=== PATIENT | female | born 1980 | race Caucasian/White ===

== ENCOUNTER 2016-08-17 16:42 | Emergency (ER) | payer MEDICAID ==
[2016-08-17] MEDS ORDERED: NORMAL SALINE 1000 ML 1,000 ML IV PRN (16:54)
--- NOTE | 2016-08-17 16:54 | ER Document Report ---
ED Medical Screen (RME) - General Stated Complaint: JAW PAIN, BACK PAIN,HEAD PAIN Notes: This 36-year-old female who has had some CSF issues has been put on Topamax for approximately a month has been having a lot of adverse side effects including spasming generally not feeling well. I greeted and performed a rapid initial assessment of this patient. Comprehensive ED assessment and evaluation of the patient, analysis of test results and completion of the medical decision making process will be conducted by additional ED providers. TRAVEL OUTSIDE OF THE [place] IN LAST 30 DAYS: No - Related Data Allergies/Adverse Reactions: azithromycin [Azithromycin] Allergy (Verified 07/17/16 17:30) anticonvulsants Allergy (Uncoded 07/17/16 17:30) Past Medical History - Past Medical History Cardiac Medical History: Reports: Hx Hypertension Denies: Hx Coronary Artery Disease, Hx Heart Attack Pulmonary Medical History: Reports: Hx Asthma Denies: Hx Bronchitis, Hx COPD, Hx Pneumonia Neurological Medical History: Reports: Hx Seizures - A CHILD (15 YEARS SINCE LAST ATTACK). Denies: Hx Cerebrovascular Accident Musculoskeltal Medical History: Reports Hx Arthritis - OA THROUGHOUT Psychiatric Medical History: Reports: Hx Bipolar Disorder, Hx Depression, Hx Schizophrenia Past Surgical History: Reports: Hx Cholecystectomy, Hx Tubal Ligation - Immunizations Hx Diphtheria, Pertussis, Tetanus Vaccination: Yes Physical Exam - Vital signs Vitals: Temp Pulse Resp BP Pulse Ox 97.9 F 88 20 142/82 H 100 08/17/16 16:49 08/17/16 16:49 08/17/16 16:49 08/17/16 16:49 08/17/16 16:49 Course - Vital Signs Vital signs: Temp Pulse Resp BP Pulse Ox 97.9 F 88 20 142/82 H 100 08/17/16 16:49 08/17/16 16:49 08/17/16 16:49 08/17/16 16:49 08/17/16 16:49
[2016-08-17 17:22] LABS: ABSOLUTE BASOPHILS # (AUTO) 0.1 10^3/uL (0.0-0.2); ABSOLUTE EOSINOPHILS # (AUTO) 0.1 10^3/uL (0.0-0.6); ABSOLUTE LYMPHOCYTES (AUTO) 2.4 10^3/uL (0.5-4.7); ABSOLUTE MONOCYTES (AUTO) 0.6 10^3/uL (0.1-1.4); ABSOLUTE NEUT (AUTO) 7.4 10^3/uL (1.7-8.2); BASOPHILS % (AUTO) 0.6 % (0-2); EOSINOPHILS % (AUTO) 0.8 % (0-6); HEMATOCRIT 45.2 % (36.0-47.0); HEMOGLOBIN 14.8 g/dL (12.0-15.5); HGB HCT DIFFERENCE -0.8; MEAN CORPUSCULAR HEMOGLOBIN 29.1 pg (27.0-33.4); MEAN CORPUSCULAR HGB CONC 32.8 g/dL (32.0-36.0); MEAN CORPUSCULAR VOLUME 89 fl (80-97); MONOCYTES % (AUTO) 5.2 % (3-13); RED BLOOD COUNT 5.08 10^6/uL (3.72-5.28); RED CELL DISTRIBUTION WIDTH 12.5 % (11.5-14.0); SEGMENTED NEUTROPHILS % (AUTO) 70.4 % (42-78); WHITE BLOOD COUNT 10.6 10^3/uL (4.0-10.5)
[2016-08-17 17:37] LABS: ALANINE AMINOTRANSFERASE 21 U/L (9-52); ALBUMIN 4.2 g/dL (3.5-5.0); ALKALINE PHOSPHATASE 60 U/L (38-126); ANION GAP 14 (5-19); ASPARTATE AMINO TRANSFERASE 11 U/L (14-36); BILIRUBIN,TOTAL 0.4 mg/dL (0.2-1.3); BLOOD UREA NITROGEN 8 mg/dL (7-20); CALCIUM 9.8 mg/dL (8.4-10.2); CARBON DIOXIDE 22 mmol/L (22-30); CHLORIDE 108 mmol/L (98-107); CREATININE RESULT 0.89 mg/dL (0.52-1.25); GLUCOSE 92 mg/dL (75-110); POTASSIUM 3.2 mmol/L (3.6-5.0); SODIUM 144.1 mmol/L (137-145); TOTAL PROTEIN 6.9 g/dL (6.3-8.2)
[2016-08-17] MEDS ORDERED: POTASSIUM CHLORIDE 20 MEQ/15 ML UDCUP PO ONE (18:31)
--- NOTE | 2016-08-17 19:24 | ER Document Report ---
HPI - HPI Patient complains to provider of: muscle aches Pain Level: 3 Context: Patient is a 36-year-old female who presents emergency Department complaining of muscle aches in her neck and back. Patient has a very complicated history for pseudotumor cerebri he with multiple visits to emergency department for headaches. Most was recently she was treated on July [address] Jaramillo with a lumbar puncture for elevated CSF for headache. Her symptoms are resolved after that procedure. Patient was discharged home and instructed to follow-up with her neurologist. She returned on July 17 with headache and orders for admission to receive a blood patch for post-lumbar tap headache. At this time with her stay in the emergency department she had declined admission because she said she felt better and wanted to go home. She presents emergency department today stating that her Topamax is making her feel goofy. She says that she has been on it for about 6 weeks and is having these symptoms the entire time but that it become more severe over this past week. She states that she has pain in her neck and lower back. She states that her prescriptions for baclofen and naproxen and OxyContin helping improve it. She is coming here today because she thinks she is leaking cerebrospinal fluid. Otherwise she denies any headache/pressure. Altered mental status, seizures, vision changes, light sensitivity. Past medical history significant for pseudotumor cerebri, hypertension, asthma, osteoarthritis, bipolar, depression, schizophrenia Past surgical history significant for cholecystectomy, tubal ligation Home medications are Topamax 200 mg, baclofen 20 mg 3 times a day, OxyContin 5 mg when necessary, Toprol 25 mg daily, naproxen to 20 twice a day when necessary PCP is Dr. Murguia, neurologist is Dr. Friedman - REPRODUCTIVE Reproductive: DENIES: : - DERM Skin Color: Normal Past Medical History - General Information source: Patient - Social History Smoking Status: Unknown if Ever Smoked Family History: Reviewed & Not Pertinent Patient has suicidal ideation: No Patient has homicidal ideation: No - Past Medical History Cardiac Medical History: Reports: Hx Hypertension Denies: Hx Coronary Artery Disease, Hx Heart Attack Pulmonary Medical History: Reports: Hx Asthma Denies: Hx Bronchitis, Hx COPD, Hx Pneumonia Neurological Medical History: Reports: Hx Seizures - A CHILD (15 YEARS SINCE LAST ATTACK). Denies: Hx Cerebrovascular Accident Renal/ Medical History: Denies: Hx Peritoneal Dialysis Musculoskeltal Medical History: Reports Hx Arthritis - OA THROUGHOUT Psychiatric Medical History: Reports: Hx Bipolar Disorder, Hx Depression, Hx Schizophrenia Past Surgical History: Reports: Hx Cholecystectomy, Hx Tubal Ligation - Immunizations Hx Diphtheria, Pertussis, Tetanus Vaccination: Yes Vertical Provider Document - CONSTITUTIONAL Agree With Documented VS: Yes Exam Limitations: Other - Patient is resistant to cooperate with physical exam General Appearance: WD/WN, No Apparent Distress - INFECTION CONTROL TRAVEL OUTSIDE OF THE [place] IN LAST 30 DAYS: No - HEENT HEENT: Atraumatic, Normal ENT Exam, Normocephalic, PERRLA - NECK Neck: Normal Inspection, Other - Paraspinous muscle tenderness - RESPIRATORY Respiratory: Breath Sounds Normal, No Respiratory Distress, Chest Non-Tender O2 Sat by Pulse Oximetry: 100 - CARDIOVASCULAR Cardiovascular: Regular Rate, Regular Rhythm, No Murmur - GI/ABDOMEN Gastrointestinal: Abdomen Soft, Abdomen Non-Tender, No Organomegaly, Normal Bowel Sounds - BACK Back: Normal Inspection Notes: Paraspinal muscle tenderness along the lumbar spine. Full range of motion with guarding. Able to ambulate without any difficulty, able to bear weight. No gait abnormalities SLR negative no headache going from supine to sitting , sitting to supine. able to move around without any limitations - MUSCULOSKELETAL/EXTREMETIES Musculoskeletal/Extremeties: MAEW, FROM, Non-Tender, No Edema. negative: Eccymosis - NEURO Level of Consciousness: Awake, Alert, Appropriate Motor/Sensory: No Motor Deficit, No Sensory Deficit, No Pronator Drift Course - Re-evaluation Re-evalutation: 08/17/16 19:38 Since a 36 female who is hemodynamically stable in no acute distress. Labs came back with concern for infectious illness. Physical exam does not support any spinous or neurological process requiring lumbar tap or additional imaging. Upon further discussion patient states that she has been sleeping upright the past 2 weeks because she feels so goofy Topamax. Stat she is likely having back pain from sleeping upright for prolonged hours. Discussed with patient that there is no indication to admit her this evening and that she can follow- up with Dr. Friedman this week. - Vital Signs Vital signs: Temp Pulse Resp BP Pulse Ox 97.9 F 88 20 142/82 H 100 08/17/16 16:49 08/17/16 16:49 08/17/16 16:49 08/17/16 16:49 08/17/16 16:49 - Laboratory Result Diagrams: 08/17/16 17:08 08/17/16 17:08 Laboratory results interpreted by me: 08/17/16 08/17/16 17:08 17:08 WBC 10.6 H Potassium 3.2 L Chloride 108 H AST 11 L Discharge - Discharge Clinical Impression: Muscle ache Condition: Good Disposition: HOME, SELF-CARE Instructions: Warm Packs ([facility]) Additional Instructions: - There is no emergent concern. Presenting symptoms today. His indicated. A follow-up care neurologist Dr. Friedman this week to discuss your concerns about your medication. Please return to emergency department if you have any worsening headache or other concerning symptoms. -Today, you did have a lower than normal potassium. Please see attached list of foods that are high in the rectal potassium. 1) Avocado. 1 whole: 1068 mg (30% DV) 2) Spinach. 1 cup: 839mg (24% DV) 3) Sweet potato. 1 medium: 952 mg (27% DV) 4) Coconut Water. 1 cup 600 mg (17% DV) 5) Kefir or Yogurt. 1 cup: 579 mg (15% DV) 6) White Beans. cup: 502 mg (15% DV) 7) Banana. 1 large: 422 mg (12% DV) 8) [place] squash. Referrals: ALLEN BAEZA MD [Primary Care Provider] - Follow up as needed QUOC FRIEDMAN MD [EMERITUS] - Follow up in 1 week
[2016-08-17] MEDS ORDERED: POTASSIUM CHLORIDE 10 MEQ TABLET.SA PO ONE (19:27)
[2016-08-17 19:59] VITALS: BP 138/90
== END 2016-08-17 19:59 | disposition home or self-care (01) ==
LOC: ER 16:42
DX: M79.1 Myalgia (principal); M54.2 Cervicalgia; M54.9 Dorsalgia, unspecified; Z79.899 Other long term (current) drug therapy
CPT/HCPCS: 36415; 80053; 83735; 85025; 99283

== ENCOUNTER → 2016-10-17 | Outpatient (CLI) | payer MEDICAID | LOC: RAD 09:34 | PROVIDERS: ATTEND Nurse Practitioner Family | DX: J18.9 Pneumonia, unspecified organism (principal) | CPT/HCPCS: 71020 ==

== ENCOUNTER 2017-02-12 08:42 | Day surgery (SDC) | payer MEDICAID ==
[2017-02-10 11:13] LABS: HEMATOCRIT 42.8 % (36.0-47.0); HEMOGLOBIN 14.5 g/dL (12.0-15.5); HGB HCT DIFFERENCE 0.7; MEAN CORPUSCULAR HEMOGLOBIN 29.1 pg (27.0-33.4); MEAN CORPUSCULAR VOLUME 86 fl (80-97); RED BLOOD COUNT 4.99 10^6/uL (3.72-5.28); RED CELL DISTRIBUTION WIDTH 12.6 % (11.5-14.0); WHITE BLOOD COUNT 10.5 10^3/uL (4.0-10.5)
[2017-02-10 11:19] LABS: APPEARANCE,URINE CLEAR; BILIRUBIN,URINE NEGATIVE (NEGATIVE); GLUCOSE, URINE NEGATIVE (NEGATIVE); KETONES,URINE NEGATIVE (NEGATIVE); URINE SPECIFIC GRAVITY 1.009
[2017-02-10 11:20] LABS: LEUKOCYTE ESTERASE,URINE TRACE (NEGATIVE); NITRITE,URINE NEGATIVE (NEGATIVE); PROTEIN,URINE NEGATIVE (NEGATIVE); UROBILINOGEN,URINE NEGATIVE mg/dL (<2.0)
[2017-02-10 11:24] LABS: RBC,URINE NONE SEEN /HPF
[~2017-02-12 08:42] MED LIST: LACTATED RINGERS 1000 ML IV PRN; LIDOCAINE 0.5% INJ-PF (5 MG/ML) 50 ML SDV SUBCUT PRN
[2017-02-12] MEDS ORDERED: MIDAZOLAM 2 MG/2 ML INJ ONE (09:07)
[2017-02-12] MEDS ORDERED: FENTANYL CITRATE INJ/PF 100 MCG/2 ML AMPUL ONE (09:07)
[2017-02-12] MEDS ORDERED: PROPOFOL INJ 200 MG/20 ML VIAL IV ONE (09:08)
[2017-02-12] MEDS ORDERED: ACETAMINOPHEN 0 ML IV ONE (09:08)
[2017-02-12 09:12] VITALS: BP 130/87
[2017-02-12] MEDS ORDERED: BUPIVACAINE HCL 0.25% /EPINEPHRINE INJ/PF 30 ML SDV ONE (09:16)
[2017-02-12] MEDS ORDERED: CEFAZOLIN 1 GM/D5W RTU 1 GM/50 ML RTUPB IV PRN (09:20)
[2017-02-12] MEDS ORDERED: METOPROLOL SUCCINATE 25 MG TAB.SR.24H PO PRN (09:21)
[2017-02-12 10:37] LABS: APPEARANCE,URINE CLEAR; BILIRUBIN,URINE NEGATIVE (NEGATIVE); GLUCOSE, URINE NEGATIVE (NEGATIVE); KETONES,URINE NEGATIVE (NEGATIVE); LEUKOCYTE ESTERASE,URINE SMALL (NEGATIVE); NITRITE,URINE NEGATIVE (NEGATIVE); PROTEIN,URINE NEGATIVE (NEGATIVE); URINE SPECIFIC GRAVITY 1.002; UROBILINOGEN,URINE NEGATIVE mg/dL (<2.0)
== END 2017-02-12 10:50 | disposition home or self-care (01) ==
LOC: OROUT 08:42
PROVIDERS: ATTEND Obstetrics & Gynecology
DX: N75.0 Cyst of Bartholin's gland (principal)
CPT/HCPCS: 36415; 87086; 85027; 81025; 81001 ×2; J2250; J3010; J3490; J0131; J2704

== ENCOUNTER 2017-02-26 08:33 | Day surgery (SDC) | payer MEDICAID ==
[2017-02-26] MEDS ORDERED: LIDOCAINE 2% INJ-PF (20 MG/ML) 10 ML AMPUL ONE (09:05)
[2017-02-26] MEDS ORDERED: MIDAZOLAM 2 MG/2 ML INJ ONE (09:05)
[2017-02-26] MEDS ORDERED: FENTANYL CITRATE INJ/PF 250 MCG/5 ML AMPULE ONE (09:05)
[2017-02-26] MEDS ORDERED: PROPOFOL INJ 200 MG/20 ML VIAL IV ONE (09:06)
[2017-02-26] MEDS ORDERED: ONDANSETRON HCL INJ/PF 4 MG/2 ML SDV ONE (09:06)
[2017-02-26] MEDS ORDERED: ACETAMINOPHEN 100 ML IV ONE (09:06)
[2017-02-26] MEDS ORDERED: DEXAMETHASONE SOD PHOSPHATE INJ 4 MG/1 ML VIAL ONE (09:06)
[2017-02-26] MEDS ORDERED: SCOPOLAMINE HYDROBROMIDE 1.5 MG PATCH.TD72 TD ONE (09:15)
[2017-02-26] MEDS ORDERED: SCOPOLAMINE HYDROBROMIDE 1.5 MG PATCH.TD72 ONE (09:17)
[2017-02-26] MEDS ORDERED: BUPIVACAINE HCL 0.25% /EPINEPHRINE INJ/PF 30 ML SDV ONE (09:22)
[2017-02-26] MEDS ORDERED: SILVER SULFADIAZINE 1% CREAM 25 GM ONE (09:22)
[2017-02-26 09:26] LABS: APPEARANCE,URINE SLIGHTLY-CLOUDY; BILIRUBIN,URINE NEGATIVE (NEGATIVE); GLUCOSE, URINE NEGATIVE (NEGATIVE); KETONES,URINE NEGATIVE (NEGATIVE); LEUKOCYTE ESTERASE,URINE MODERATE (NEGATIVE); NITRITE,URINE NEGATIVE (NEGATIVE); PROTEIN,URINE NEGATIVE (NEGATIVE); URINE SPECIFIC GRAVITY 1.006; UROBILINOGEN,URINE NEGATIVE mg/dL (<2.0)
[2017-02-26] MEDS ORDERED: MEPERIDINE HCL/PF INJ 25 MG/1 ML DISP.SYRIN IV PRN (09:37)
[2017-02-26] MEDS ORDERED: OXYCODONE-ACETAMINOPHEN 5-325 MG TABLET PO PRN ×4 (09:37→11:12)
[2017-02-26] MEDS ORDERED: ONDANSETRON HCL INJ/PF 4 MG/2 ML SDV IV PRN (09:37)
[2017-02-26] MEDS ORDERED: MORPHINE SULFATE 10 MG/ML INJ IV PRN (09:37)
[2017-02-26] MEDS ORDERED: DIPHENHYDRAMINE HCL 50 MG/ML VIAL IV PRN (09:37)
[2017-02-26] MEDS ORDERED: PROMETHAZINE HCL INJ 25 MG/1 ML VIAL IV PRN ×2 (09:37)
[2017-02-26] MEDS ORDERED: FENTANYL CITRATE INJ/PF 100 MCG/2 ML AMPUL IV PRN ×3 (09:37)
[2017-02-26] MEDS: FENTANYL CITRATE INJ/PF 100 MCG/2 ML AMPUL ONE ×2 (10:40→10:46)
--- NOTE | 2017-02-26 10:44 | OPERATIVE REPORT E ---
Operative Report NAME: FARZANA LANE : 1980 AGE: 36Y DATE OF SURGERY: 02/26/2017 ROOM: PREOPERATIVE DIAGNOSIS: Recurrent Bartholin cyst. POSTOPERATIVE DIAGNOSIS: Recurrent Bartholin cyst. OPERATION: Bartholin cystectomy. SURGEON: NIKUNJ CAMPOS M.D. ANESTHESIA: Dr. Duke with general. FINDINGS: Large approximately 4-cm wide left labial Bartholin cyst, mucinous filled. COMPLICATIONS: None. ESTIMATED BLOOD LOSS: 50 mL. SPECIMENS REMOVED: Bartholin gland. PROCEDURE IN DETAIL: Patient was taken to the operating room, prepped and draped in a normal sterile fashion in dorsal lithotomy position. Approximately 10 mL of 0.25% bupivacaine with epi was injected along the longitudinal aspect of the Bartholin cyst after it was identified with palpation and pressure. I then took a 10 blade and scored the skin along this longitudinal axis and began dissection using Metzenbaum scissors following the plane of the cyst from the underlying mucosa. This was continued until the cyst was completely freed using both Metzenbaums as well as blunt dissection using a Ray-Ysabel. When the cyst was completely freed it was amputated at the deepest aspect using the Metzenbaums and passed off the field. I then inspected the defect that was left behind and starting at the deepest aspect closed the defect in layers using 2-0 Vicryl interrupted [id number] sutures with obtaining hemostasis as I went along. Once this was obtained, the skin layer was then closed with 0 Vicryl. I then watched the area for a good 5 minutes to make sure that there was no hematoma forming. There was a small amount of general oozing but other than that there was good hemostasis. Silvadene cream was then applied to the wound to perpetuate additional healing. The patient tolerated the procedure well. Sponge, lap and needle counts were correct x2, and the patient was taken to recovery in stable condition. DICTATING PHYSICIAN: NIKUNJ CAMPOS M.D. [id number] PHY#: [id number] ID: [id number] JOB#: [id number] ACCT: [id number] cc:NIKUNJ CAMPOS M.D. >
[2017-02-26] MEDS ORDERED: RINGERS SOLUTION,LACTATED 1,000 ML IV PRN (11:11)
[2017-02-26] MEDS ORDERED: MORPHINE SULFATE 10 MG/ML INJ IM PRN (11:11)
[2017-02-26] MEDS ORDERED: IBUPROFEN 800 MG TABLET PO PRN (11:12)
[2017-02-26 13:05] VITALS: BP 115/73
[2017-02-26] MEDS ORDERED: SILVER SULFADIAZINE 1% CREAM 25 GM TP SCH (18:00)
[2017-02-26] MEDS ORDERED: CEPHALEXIN 500 MG CAPSULE PO SCH (22:00)
== END 2017-02-26 12:50 | disposition home or self-care (01) ==
LOC: OROUT 08:33
PROVIDERS: ATTEND Obstetrics & Gynecology
PROC: 0UBL0ZZ Excision of Vestibular Gland, Open Approach (ICD-10-PCS; principal; 2017-02-26 09:30)
DX: N75.0 Cyst of Bartholin's gland (principal); J45.909 Unspecified asthma, uncomplicated; I10 Essential (primary) hypertension; G43.909 Migraine, unspecified, not intractable, without status migrainosus; G40.909 Epilepsy, unspecified, not intractable, without status epilepticus; F41.9 Anxiety disorder, unspecified; F31.9 Bipolar disorder, unspecified; Z87.891 Personal history of nicotine dependence; Z88.1 Allergy status to other antibiotic agents
CPT/HCPCS: 81025; 81001; 88304 ×2; 56740; J2250; J3490 ×4; J1100; J3010 ×2; J2405; J2704; J0131; 940

== ENCOUNTER 2020-06-18 10:00 | Day surgery (SDC) | payer MEDICARE, MEDICAID ==
[2020-06-13 10:46] LABS: HEMATOCRIT 44.7 % (36.0-47.0); HEMOGLOBIN 15.6 g/dL (12.0-15.5); MEAN CORPUSCULAR HEMOGLOBIN 29.9 pg (27.0-33.4); MEAN CORPUSCULAR VOLUME 86 fl (80-97); PLATELET COUNT 236 10^3/uL (150-450); RED BLOOD COUNT 5.23 10^6/uL (3.72-5.28); RED CELL DISTRIBUTION WIDTH 12.5 % (11.5-14.0); WHITE BLOOD COUNT 11.1 10^3/uL (4.0-10.5)
[2020-06-13 10:53] LABS: ALBUMIN 4.7 g/dL (3.5-5.0); ALKALINE PHOSPHATASE 72 U/L (38-126); ANION GAP 12 (5-19); ASPARTATE AMINO TRANSFERASE 24 U/L (14-36); BILIRUBIN,DIRECT 0.1 mg/dL (0.0-0.4); BILIRUBIN,TOTAL 0.7 mg/dL (0.2-1.3); BLOOD UREA NITROGEN 11 mg/dL (7-20); CALCIUM 10.1 mg/dL (8.4-10.2); CARBON DIOXIDE 21 mmol/L (22-30); CHLORIDE 106 mmol/L (98-107); GLUCOSE 84 mg/dL (75-110); POTASSIUM 4.3 mmol/L (3.6-5.0); TOTAL PROTEIN 7.5 g/dL (6.3-8.2)
[2020-06-13 11:05] LABS: APPEARANCE,URINE CLEAR; BILIRUBIN,URINE NEGATIVE (NEGATIVE); COLOR,URINE YELLOW; GLUCOSE, URINE NEGATIVE (NEGATIVE); KETONES,URINE NEGATIVE (NEGATIVE); LEUKOCYTE ESTERASE,URINE TRACE (NEGATIVE); NITRITE,URINE NEGATIVE (NEGATIVE); PROTEIN,URINE NEGATIVE (NEGATIVE); URINE SPECIFIC GRAVITY 1.006; UROBILINOGEN,URINE NEGATIVE mg/dL (<2.0)
[~2020-06-18 10:00] MED LIST changes: +CEFAZOLIN 1 GM/D5W RTU 1 GM/50 ML RTUPB IV ONE; +CEFAZOLIN 1 GM/D5W RTU 1 GM/50 ML RTUPB IV PRN; +DEXAMETHASONE SOD PHOSPHATE INJ 4 MG/1 ML VIAL ONE; +FENTANYL CITRATE INJ/PF 100 MCG/2 ML AMPUL ONE; -LACTATED RINGERS 1000 ML IV PRN; -LIDOCAINE 0.5% INJ-PF (5 MG/ML) 50 ML SDV SUBCUT PRN; +MIDAZOLAM 2 MG/2 ML INJ ONE; +ONDANSETRON HCL INJ/PF 4 MG/2 ML SDV ONE; +PROPOFOL INJ 200 MG/20 ML VIAL IV ONE; +SUGAMMADEX SODIUM 200 MG/2 ML SDV IV ONE
[2020-06-18] MEDS ORDERED: ONDANSETRON HCL INJ/PF 4 MG/2 ML SDV IV PRN (13:51)
[2020-06-18] MEDS ORDERED: FENTANYL CITRATE INJ/PF 100 MCG/2 ML AMPUL IV PRN ×2 (13:51)
[2020-06-18] MEDS ORDERED: MORPHINE SULFATE 10 MG/ML INJ IV PRN (13:51)
[2020-06-18] MEDS ORDERED: PROMETHAZINE HCL INJ 25 MG/1 ML VIAL IV PRN ×2 (13:51)
[2020-06-18] MEDS ORDERED: MEPERIDINE HCL/PF INJ 25 MG/1 ML DISP.SYRIN IV PRN (13:51)
[2020-06-18] MEDS ORDERED: DIPHENHYDRAMINE HCL 50 MG/ML VIAL IV PRN (13:51)
[2020-06-18] MEDS ORDERED: SUCCINYLCHOLINE CHLORIDE INJ 200 MG/10 ML VIAL ONE (14:44)
[2020-06-18] MEDS ORDERED: ROCURONIUM BROMIDE INJ 50 MG/5 ML VIAL IV ONE (14:44)
[2020-06-18] MEDS ORDERED: MIDAZOLAM 2 MG/2 ML INJ ONE (15:29)
--- NOTE | 2020-06-18 15:29 | Operative Report ---
Operative Report DATE OF SURGERY: 06/18/20 PREOPERATIVE DIAGNOSIS: Patient desires hysterectomy for heavy menses POSTOPERATIVE DIAGNOSIS: Same OPERATION: Robotic hysterectomy and bilateral salpingectomy. Ovaries appeared normal and were left in place SURGEON: MORGAN ESPAÑA ANESTHESIA: GA TISSUE REMOVED OR ALTERED: Uterus and fallopian tubes COMPLICATIONS: None ESTIMATED BLOOD LOSS: 50 cc INTRAOPERATIVE FINDINGS: Boggy appearing uterus normal tubes with Filshie clips bilaterally and normal-appearing ovaries PROCEDURE: Patient was taken to the OR and placed in supine position. General anesthesia was induced. She is placed in the dorsolithotomy position using Eitan stirrups. Her perineum vagina and abdomen were prepared and draped in a sterile fashion. Her bladder was drained with a Lopez catheter. A Vcare uterine manipulator was placed on the cervix. An incision was made at the umbilicus and natural umbilical defect was identified and dilated allowing a blunt port to be placed. Laparoscopy confirmed appropriate placement and the abdomen was insufflated with CO2 gas. The lateral ports were placed under laparoscopic visualization. A right lower quadrant port was placed under laparoscopic visualization. Next the patient was placed in steep Trendelenburg positioning and the robot was brought to the patient and docked. View of the pelvis was good. Each fallopian tube was then removed. This was done by cauterizing the mesosalpinx with bipolar and cutting with monopolar don and then excising the tube from the uterus and passing it off the field. This procedure was completed bilaterally. Next the round ligament on the left was cauterized and cut. The broad ligament staying directly next the uterus was cauterized with bipolar and cut with monopolar don. The uterine arteries were identified and then cauterized with bipolar cautery and cut with monopolar don. The right round ligament was then cauterized with bipolar cautery and cut with monopolar don. Staying directly next to the uterus the broad ligament was cauterized with bipolar cautery and cut with monopolar don. The uterine arteries were identified on the right as well and were cauterized with bipolar cautery and cut with monopolar don. The anterior leaf of the broad ligament was incised creating a bladder flap. The cardinal ligament was divided bilaterally using bipolar cautery and monopolar don. Upon reaching the vaginal angles the V care cup was identified and a circumferential incision was made around the cervix on top of the Vcare cup. The uterus was removed through the vagina. Next a V lock suture was passed to the field. The monopolar don were exchanged for a needle stage driver. An angle suture was placed on the right edge of the cuff. This incorporated anterior vaginal mucosa lateral vaginal sidewall and posterior vaginal mucosa. The V-Loc suture was then looped and pulled tight. The cuff was then closed in a running fashion closing anterior vaginal mucosa the posterior vaginal mucosa. Upon reaching the left angle anterior vaginal mucosa lateral uterus sidewall and posterior vaginal mucosa was grasped. The suture was pulled tight. Several sutures were taken back medially and the suture was cut. The pelvis was then irrigated and and suctioned free of fluid. Each of the pedicles were inspected including the utero-ovarian pedicles the uterine artery pedicles and the vaginal angles. These were found to be hemostatic. The ureters were identified bilaterally and were normal size and peristalsing. The robot was then undocked from the patient. Under laparoscopic visualization each port was removed. The gas was allowed to escape from the abdomen. The umbilical port and scope were removed at the same time. The fascia at the umbilicus was closed with a 2-0 Vicryl stitch and the skin at all 4 sites closed with a 4-0 undyed Vicryl stitch. Lopez catheter was removed in the OR.
[2020-06-18] MEDS ORDERED: FENTANYL CITRATE INJ/PF 100 MCG/2 ML AMPUL ONE (15:33)
[2020-06-18] MEDS: FENTANYL CITRATE INJ/PF 100 MCG/2 ML AMPUL IV PRN ×2 (15:35→15:47)
[2020-06-18] MEDS ORDERED: OXYCODONE-ACETAMINOPHEN 5-325 MG TABLET PO PRN (16:19)
[2020-06-18 17:44] LABS: HEMATOCRIT 41.7 % (36.0-47.0); HEMOGLOBIN 14.2 g/dL (12.0-15.5); MEAN CORPUSCULAR HEMOGLOBIN 29.4 pg (27.0-33.4); MEAN CORPUSCULAR VOLUME 86 fl (80-97); PLATELET COUNT 206 10^3/uL (150-450); RED BLOOD COUNT 4.84 10^6/uL (3.72-5.28); RED CELL DISTRIBUTION WIDTH 12.5 % (11.5-14.0)
[2020-06-18 18:03] LABS: ANION GAP 8 (5-19); BLOOD UREA NITROGEN 12 mg/dL (7-20); CARBON DIOXIDE 26 mmol/L (22-30); CHLORIDE 104 mmol/L (98-107); GLUCOSE 119 mg/dL (75-110)
[2020-06-18] MEDS ORDERED: LABETALOL HCL INJ 20 MG/4 ML DISP.SYRIN IV ONE (18:15)
[2020-06-18] MEDS: OXYCODONE-ACETAMINOPHEN 5-325 MG TABLET PO PRN (18:35)
[2020-06-18] MEDS: IBUPROFEN 800 MG TABLET PO SCH ×2 (20:01→21:29)
[2020-06-18] MEDS: RINGERS SOLUTION,LACTATED 1,000 ML IV PRN (21:38)
[2020-06-19] MEDS: OXYCODONE-ACETAMINOPHEN 5-325 MG TABLET PO PRN ×2 (00:18→07:35)
[2020-06-19] MEDS: RINGERS SOLUTION,LACTATED 1,000 ML IV PRN (05:37)
--- NOTE | 2020-06-19 08:03 | PDOC DISCHARGE SUMMARY ---
Impression - Admit/DC Date/PCP Admission Date/Primary Care Provider: LINUS RODRIGUEZ DO Discharge Date: 06/19/20 - Discharge Diagnosis (1) Menorrhagia Is this a current diagnosis for this admission?: Yes (2) Dysmenorrhea Is this a current diagnosis for this admission?: Yes - Assessment Summary: The pt underwent a Davinci hysterectomy. The procedure went well. Please see the operative report. She did well overnight and is now ready to go home. Precautions given including pelvic rest, no driving on pain meds. Followup in next week. - Additional Information Resuscitation Status: Full Code Discharge Diet: As Tolerated Discharge Activity: Pelvic Rest, Slowly Increase Activity Referrals: LINUS RODRIGUEZ DO [Primary Care Provider] - MORGAN ESPAÑA MD [ACTIVE STAFF] - 06/27/20 9:30 am (CALL THE OFFICE FOR THE QUESTIONS AND CONCERNS.) Prescriptions: Oxycodone HCl/Acetaminophen [Percocet 5-325 mg Tablet] 1 tab PO Q6HP PRN #20 tablet PRN Reason: Ibuprofen [Motrin 800 mg Tablet] 800 mg PO Q8H #30 tablet Home Medications: Metoprolol Succinate [Toprol Xl] 25 mg PO DAILY 05/01/15 Fluticasone Propionate [Flovent Hfa 44 Mcg Inhalation Aerosol 10.6 gm] 40 mcg IH PRN PRN 06/13/20 Omeprazole Magnesium [Prilosec] 20 mg PO DAILY 06/13/20 Ibuprofen [Motrin 800 mg Tablet] 800 mg PO Q8H #30 tablet 06/19/20 Oxycodone HCl/Acetaminophen [Percocet 5-325 mg Tablet] 1 tab PO Q6HP PRN #20 tablet 06/19/20 History of Present Illiness History of Present Illness: FARZANA LANE is a 39 year old female Physical Exam - Physical Exam Vital Signs: Temp Pulse Resp BP Pulse Ox 98.2 F 65 15 132/85 H 99 06/19/20 03:36 06/19/20 03:36 06/19/20 03:36 06/19/20 03:36 06/19/20 03:36 Intake & Output 06/18/20 06/19/20 06/20/20 06:59 06:59 06:59 Intake Total 3873 Output Total 1480 Balance 2393 Weight 71.4 kg Results Laboratory Results: WBC 24.0 10^3/uL (4.0-10.5) H 06/18/20 17:37 RBC 4.84 10^6/uL (3.72-5.28) 06/18/20 17:37 Hgb 14.2 g/dL (12.0-15.5) 06/18/20 17:37 Hct 41.7 % (36.0-47.0) 06/18/20 17:37 MCV 86 fl (80-97) 06/18/20 17:37 MCH 29.4 pg (27.0-33.4) 06/18/20 17:37 MCHC 34.0 g/dL (32.0-36.0) 06/18/20 17:37 RDW 12.5 % (11.5-14.0) 06/18/20 17:37 Plt Count 206 10^3/uL (150-450) 06/18/20 17:37 Sodium 137.8 mmol/L (137-145) 06/18/20 17:37 Potassium 4.0 mmol/L (3.6-5.0) 06/18/20 17:37 Chloride 104 mmol/L (98-107) 06/18/20 17:37 Carbon Dioxide 26 mmol/L (22-30) 06/18/20 17:37 Anion Gap 8 (5-19) 06/18/20 17:37 BUN 12 mg/dL (7-20) 06/18/20 17:37 Creatinine 0.80 mg/dL (0.52-1.25) 06/18/20 17:37 Est GFR ( Amer) > 60 (>60) 06/18/20 17:37 Est GFR (MDRD) Non-Af > 60 (>60) 06/18/20 17:37 Glucose 119 mg/dL (75-110) H 06/18/20 17:37 Calcium 9.0 mg/dL (8.4-10.2) 06/18/20 17:37 Total Bilirubin 0.7 mg/dL (0.2-1.3) 06/13/20 09:05 Direct Bilirubin 0.1 mg/dL (0.0-0.4) 06/13/20 09:05 Neonat Total Bilirubin Not Reportable 06/13/20 09:05 Neonat Direct Bilirubin Not Reportable 06/13/20 09:05 Neonat Indirect Bili Not Reportable 06/13/20 09:05 AST 24 U/L (14-36) 06/13/20 09:05 ALT 31 U/L (<35) 06/13/20 09:05 Alkaline Phosphatase 72 U/L (38-126) 06/13/20 09:05 Total Protein 7.5 g/dL (6.3-8.2) 06/13/20 09:05 Albumin 4.7 g/dL (3.5-5.0) 06/13/20 09:05 Urine Color YELLOW 06/13/20 09:14 Urine Appearance CLEAR 06/13/20 09:14 Urine pH 7.0 (5.0-9.0) 06/13/20 09:14 Ur Specific Campbell 1.006 06/13/20 09:14 Urine Protein NEGATIVE mg/dL (NEGATIVE) 06/13/20 09:14 Urine Glucose (UA) NEGATIVE mg/dL (NEGATIVE) 06/13/20 09:14 Urine Ketones NEGATIVE mg/dL (NEGATIVE) 06/13/20 09:14 Urine Blood SMALL (NEGATIVE) H 06/13/20 09:14 Urine Nitrite NEGATIVE (NEGATIVE) 06/13/20 09:14 Urine Bilirubin NEGATIVE (NEGATIVE) 06/13/20 09:14 Urine Urobilinogen NEGATIVE mg/dL (<2.0) 06/13/20 09:14 Ur Leukocyte Esterase TRACE (NEGATIVE) H 06/13/20 09:14 Urine WBC (Auto) 1 /HPF 06/13/20 09:14 Urine RBC (Auto) 0 /HPF 06/13/20 09:14 Squamous Epi Cells Auto 2 /HPF 06/13/20 09:14 Urine Mucus (Auto) RARE /LPF 06/13/20 09:14 Urine Ascorbic Acid NEGATIVE (NEGATIVE) 06/13/20 09:14 Urine HCG, Qual NEGATIVE (NEGATIVE) 06/18/20 10:10 COVID-19 Source See comment 06/13/20 09:10 COVID-19 (DOUGLAS) Not Detected (Not Detect) 06/13/20 09:10 Blood Type O POSITIVE 06/13/20 09:05 Antibody Screen NEGATIVE 06/13/20 09:05 Stroke Is this a Stroke Patient?: No Acute Heart Failure Is this a Heart Failure Patient?: No
[2020-06-19 08:08] VITALS: BP 147/93
[2020-06-19 08:37] LABS: HEMATOCRIT 39.3 % (36.0-47.0); HEMOGLOBIN 13.4 g/dL (12.0-15.5); MEAN CORPUSCULAR HEMOGLOBIN 29.7 pg (27.0-33.4); MEAN CORPUSCULAR HGB CONC 34.2 g/dL (32.0-36.0); MEAN CORPUSCULAR VOLUME 87 fl (80-97); PLATELET COUNT 207 10^3/uL (150-450); RED BLOOD COUNT 4.51 10^6/uL (3.72-5.28); RED CELL DISTRIBUTION WIDTH 12.4 % (11.5-14.0); WHITE BLOOD COUNT 18.5 10^3/uL (4.0-10.5)
[2020-06-19 08:54] LABS: ANION GAP 8 (5-19); BLOOD UREA NITROGEN 9 mg/dL (7-20); CALCIUM 9.2 mg/dL (8.4-10.2); CARBON DIOXIDE 25 mmol/L (22-30); CHLORIDE 106 mmol/L (98-107); GLUCOSE 98 mg/dL (75-110); POTASSIUM 4.1 mmol/L (3.6-5.0)
[2020-06-19] MEDS ORDERED: PANTOPRAZOLE SODIUM 20 MG TABLET.DR PO SCH (10:00)
[2020-06-19] MEDS ORDERED: METOPROLOL TARTRATE 25 MG TABLET PO SCH (10:00)
== END 2020-06-19 08:50 | disposition home or self-care (01) ==
LOC: OROUT 10:00 → 2N 16:39 → OROUT 06-19 08:50
PROVIDERS: ATTEND Obstetrics & Gynecology
DX: N93.8 Other specified abnormal uterine and vaginal bleeding (principal); N94.5 Secondary dysmenorrhea; N87.0 Mild cervical dysplasia; N83.8 Other noninflammatory disorders of ovary, fallopian tube and broad ligament; I10 Essential (primary) hypertension; K21.9 Gastro-esophageal reflux disease without esophagitis; J45.909 Unspecified asthma, uncomplicated; N92.6 Irregular menstruation, unspecified; Z90.49 Acquired absence of other specified parts of digestive tract; Z86.19 Personal history of other infectious and parasitic diseases; Z87.891 Personal history of nicotine dependence; Z79.899 Other long term (current) drug therapy; Z20.828 Contact with and (suspected) exposure to other viral communicable diseases
CPT/HCPCS: 58571; 86900; 86901; 36415 ×2; 86850; 85027 ×2; 81025; 80048; 80053; 81001; 88307 ×2; 00840; C1758; U0003; J2250; J0690; J3490 ×2; A9270 ×3; J1100; J3010; J0330; J2405; J7120 ×2; J2704; C9803; 840; 87635